=== PATIENT | male | born 1975 | race African-American/Black ===

== ENCOUNTER 2016-09-20 15:15 | Emergency (ER) | payer MEDICAID ==
[~2016-09-20] VITALS: Ht 185.4 cm; Wt 124.5 kg
[2016-09-20] MEDS ORDERED: SODIUM CHLORIDE FLUSH 10ML SYR IVF ONE (15:30)
[2016-09-20] MEDS ORDERED: ASPIRIN 81 MG TABLET CHEW PO ONE (15:30)
[2016-09-20 15:53] LABS: ASPARTATE AMINO TRANSFERASE 8 U/L (15-37); BLOOD UREA NITROGEN 15 mg/dL (7-18)
[2016-09-20 15:56] LABS: IS PT STATUS REG ER OR PRE ER? YES
[2016-09-20] MEDS ORDERED: ASPIRIN 81 MG TABLET CHEW ONE (15:56)
[2016-09-20 16:10] LABS: LARGE PLATELETS 1+
[2016-09-20 18:11] VITALS: BP 120/74
== END 2016-09-20 18:07 | disposition home or self-care (01) ==
LOC: ED 18:01
DX: R07.89 Other chest pain (principal); R06.00 Dyspnea, unspecified; N18.9 Chronic kidney disease, unspecified; I10 Essential (primary) hypertension; K21.9 Gastro-esophageal reflux disease without esophagitis
CPT/HCPCS: 36415; 71010; 80053; 81003; 84484; 85025; 93005; 99285

== ENCOUNTER 2016-09-22 17:00 | Emergency (ER) | payer MEDICAID ==
[~2016-09-22] VITALS: Ht 185.4 cm; Wt 126.4 kg
[2016-09-22 17:09] VITALS: BP 118/81
[2016-09-22 18:32] LABS: ASPARTATE AMINO TRANSFERASE 8 U/L (15-37); BLOOD UREA NITROGEN 12 mg/dL (7-18)
== END 2016-09-22 19:49 | disposition home or self-care (01) ==
LOC: ED 19:23
DX: R10.9 Unspecified abdominal pain (principal); H10.233 Serous conjunctivitis, except viral, bilateral; I12.9 Hypertensive chronic kidney disease with stage 1 through stage 4 chronic kidney disease, or unspecified chronic kidney disease; N18.9 Chronic kidney disease, unspecified; R68.2 Dry mouth, unspecified; K21.9 Gastro-esophageal reflux disease without esophagitis; Z90.49 Acquired absence of other specified parts of digestive tract; Z90.89 Acquired absence of other organs
CPT/HCPCS: 36415; 80053; 85025; 99284

== ENCOUNTER 2016-10-12 15:10 | Emergency (ER) | payer MEDICAID ==
[~2016-10-12] VITALS: Ht 185.4 cm; Wt 126.0 kg
[2016-10-12] MEDS ORDERED: ACETAMINOPHEN 325 MG TABLET ONE (15:50)
[2016-10-12] MEDS ORDERED: ACETAMINOPHEN 325 MG TABLET PO ONE (16:00)
[2016-10-12 16:31] LABS: BLOOD UREA NITROGEN 9 mg/dL (7-18)
[2016-10-12 16:53] VITALS: BP 128/89
[2016-10-12] MEDS ORDERED: IBUPROFEN 200 MG TABLET ONE (16:57)
[2016-10-12] MEDS ORDERED: IBUPROFEN 200 MG TABLET PO ONE (17:00)
[2016-10-12] MEDS ORDERED: DEXTROMETHORPHAN 30 MG/5 ML ORAL SOL PO PRN (17:00)
== END 2016-10-12 17:14 | disposition home or self-care (01) ==
LOC: ED 16:42
DX: R50.9 Fever, unspecified (principal); J02.8 Acute pharyngitis due to other specified organisms; I10 Essential (primary) hypertension; K21.9 Gastro-esophageal reflux disease without esophagitis
CPT/HCPCS: 36415; 71020; 80048; 82040; 99285

== ENCOUNTER 2016-12-02 05:07 | Emergency (ER) | payer MEDICAID ==
[~2016-12-02] VITALS: Ht 185.4 cm; Wt 126.8 kg
[2016-12-02 05:08] VITALS: BP 139/88
[2016-12-02] MEDS ORDERED: ONDANSETRON 2MG/ML, 2ML ONE (06:19)
[2016-12-02] MEDS ORDERED: MAALOX/HYOSCYAMINE/LIDOCAINE 45 ML BOTTLE ONE (06:19)
[2016-12-02] MEDS ORDERED: FAMOTIDINE 20 MG/2 ML ONE (06:20)
[2016-12-02] MEDS ORDERED: FAMOTIDINE 20 MG/2 ML IVP ONE (06:30)
[2016-12-02] MEDS ORDERED: MAALOX/HYOSCYAMINE/LIDOCAINE 45 ML BOTTLE PO ONE (06:30)
[2016-12-02] MEDS ORDERED: SODIUM CHLORIDE 0.9% 1,000ML IVBOLUS ONE (06:30)
[2016-12-02] MEDS ORDERED: ONDANSETRON 2MG/ML, 2ML IVPush ONE (06:30)
[2016-12-02 06:45] LABS: ASPARTATE AMINO TRANSFERASE 13 U/L (15-37); BLOOD UREA NITROGEN 8 mg/dL (7-18)
== END 2016-12-02 08:30 | disposition home or self-care (01) ==
LOC: ED 07:47
DX: G89.29 Other chronic pain (principal); R10.84 Generalized abdominal pain; I10 Essential (primary) hypertension; K21.9 Gastro-esophageal reflux disease without esophagitis
CPT/HCPCS: 36415; 80053; 81003; 85025; 96361; 96374; 99285; J2405; J7030

== ENCOUNTER 2017-01-20 05:36 | Emergency (ER) | payer MEDICAID ==
[~2017-01-20] VITALS: Ht 185.4 cm; Wt 123.5 kg
[2017-01-20 06:32] LABS: HEMATOCRIT 49.7 % (39.2-51.8); WHITE BLOOD COUNT 6.7 x10^3/uL (3.4-10)
[2017-01-20 06:39] LABS: BLOOD UREA NITROGEN 9 mg/dL (7-18)
[2017-01-20] MEDS ORDERED: AMPH30TA2 PO (06:59)
[2017-01-20 07:48] VITALS: BP 124/82
== END 2017-01-20 08:27 | disposition home or self-care (01) ==
LOC: ED 06:42
DX: I12.9 Hypertensive chronic kidney disease with stage 1 through stage 4 chronic kidney disease, or unspecified chronic kidney disease (principal); N18.2 Chronic kidney disease, stage 2 (mild); F41.1 Generalized anxiety disorder; K21.9 Gastro-esophageal reflux disease without esophagitis; Z90.49 Acquired absence of other specified parts of digestive tract
CPT/HCPCS: 36415; 80048; 81003; 82040; 85025; 99284

== ENCOUNTER 2017-01-23 09:13 | Emergency (ER) | payer MEDICAID ==
[~2017-01-23] VITALS: Ht 185.4 cm; Wt 124.0 kg
[~2017-01-23 09:13] MED LIST: AMPH30TA2 PO
[2017-01-23 09:22] VITALS: BP 138/82
[2017-01-23] MEDS ORDERED: BUPR75TA6 PO (09:47)
[2017-01-23 10:16] LABS: HEMATOCRIT 49.4 % (39.2-51.8); HEMOGLOBIN 16.2 g/dL (13.7-18.0); WHITE BLOOD COUNT 7.5 x10^3/uL (3.4-10)
[2017-01-23 10:27] LABS: BLOOD UREA NITROGEN 12 mg/dL (7-18)
[2017-01-23 10:35] LABS: DIFF TOTAL CELLS COUNTED 100 CELL DIFF
[2017-01-23 10:37] LABS: LARGE PLATELETS 1+; VERIFY COUNTS? YES
== END 2017-01-23 12:25 | disposition home or self-care (01) ==
LOC: ED 11:45
DX: N34.2 Other urethritis (principal); I10 Essential (primary) hypertension; K21.9 Gastro-esophageal reflux disease without esophagitis; Z90.49 Acquired absence of other specified parts of digestive tract; Z87.891 Personal history of nicotine dependence; Z88.0 Allergy status to penicillin
CPT/HCPCS: 36415; 80048; 81003; 82040; 85025; 99284

== ENCOUNTER 2017-10-11 00:53 | Emergency (ER) | payer MEDICAID ==
[~2017-10-11] VITALS: Ht 185.4 cm; Wt 149.4 kg
[~2017-10-11 00:53] MED LIST changes: +BUPR75TA6 PO
[2017-10-11 00:55] VITALS: BP 155/104
[2017-10-11] MEDS ORDERED: IBUPROFEN 200 MG TABLET ONE (01:13)
[2017-10-11] MEDS ORDERED: IBUPROFEN 200 MG TABLET PO ONE (01:30)
== END 2017-10-11 01:22 | disposition home or self-care (01) ==
LOC: ED 01:15
DX: M79.661 Pain in right lower leg (principal); M79.662 Pain in left lower leg; I10 Essential (primary) hypertension; K21.9 Gastro-esophageal reflux disease without esophagitis; Z90.49 Acquired absence of other specified parts of digestive tract
CPT/HCPCS: 99282

== ENCOUNTER 2018-02-27 18:51 | Emergency (ER) | payer MEDICAID ==
[~2018-02-27] VITALS: Ht 185.4 cm; Wt 178.0 kg
[2018-02-27 19:02] VITALS: BP 121/80
== END 2018-02-27 19:42 | disposition home or self-care (01) ==
LOC: ED 19:10
DX: B34.9 Viral infection, unspecified (principal); I10 Essential (primary) hypertension; K21.9 Gastro-esophageal reflux disease without esophagitis; Z90.49 Acquired absence of other specified parts of digestive tract; Z87.891 Personal history of nicotine dependence
CPT/HCPCS: 99283

== ENCOUNTER 2018-03-15 12:21 | Emergency (ER) | payer MEDICAID ==
[~2018-03-15] VITALS: Ht 185.4 cm; Wt 138.7 kg
[2018-03-15 12:31] VITALS: BP 116/86
[2018-03-15] MEDS ORDERED: ACETAMINOPHEN 325 MG TABLET PO ONE (13:00)
[2018-03-15] MEDS ORDERED: IBUPROFEN 200 MG TABLET PO ONE (13:00)
[2018-03-15] MEDS ORDERED: ACETAMINOPHEN 325 MG TABLET ONE (13:07)
[2018-03-15] MEDS ORDERED: IBUPROFEN 200 MG TABLET ONE (13:07)
== END 2018-03-15 16:15 | disposition home or self-care (01) ==
LOC: ED 13:50
DX: S16.1XXA Strain of muscle, fascia and tendon at neck level, initial encounter (principal); S39.012A Strain of muscle, fascia and tendon of lower back, initial encounter; S20.211A Contusion of right front wall of thorax, initial encounter; J02.9 Acute pharyngitis, unspecified; I10 Essential (primary) hypertension; K21.9 Gastro-esophageal reflux disease without esophagitis; Z90.49 Acquired absence of other specified parts of digestive tract; Z88.0 Allergy status to penicillin; V49.09XA Driver injured in collision with other motor vehicles in nontraffic accident, initial encounter; Y93.89 Activity, other specified; Y99.8 Other external cause status; Y92.410 Unspecified street and highway as the place of occurrence of the external cause
CPT/HCPCS: 72020; 72110; 72125; 87081; 87880; 99285

== ENCOUNTER 2018-03-22 21:28 | Emergency (ER) | payer MEDICAID ==
[~2018-03-22] VITALS: Ht 185.4 cm; Wt 143.0 kg
[2018-03-22] MEDS ORDERED: ONDANSETRON ODT 4 MG ONE (22:26)
[2018-03-22] MEDS ORDERED: ONDANSETRON ODT 4 MG PO ONE (22:30)
[2018-03-22 22:36] VITALS: BP 130/87
[2018-03-22 22:52] LABS: MEAN CORPUSCULAR HEMOGLOBIN 28.7 pg (27.5-34.5); MEAN CORPUSCULAR HGB CONC 33.4 g/dL (33.2-36.2); MEAN CORPUSCULAR VOLUME 85.8 fL (81-97); MEAN PLATELET VOLUME 10.8 fL (7.4-10.4); PLATELET COUNT 167 x10^3/uL (130-400); RED BLOOD COUNT 5.35 x10^6/uL (4.38-5.82); RED CELL DISTRIBUTION WIDTH 15.1 % (9.4-14.8)
[2018-03-22 23:01] LABS: ALBUMIN 3.6 g/dL (3.4-5.0); ANION GAP 8 mmol/L (5-15); CALCIUM 8.8 mg/dL (8.5-10.1); CHLORIDE 105 mmol/L (98-107); CREATININE 1.11 mg/dL (0.7-1.3)
[2018-03-22 23:10] LABS: BASOPHILS # (AUTO) 0.05 x10^3/uL (0-0.1); BASOPHILS % (AUTO) 1 % (0-1); EOSINOPHILS # (AUTO) 0.21 x10^3/uL (0-0.4); EOSINOPHILS % (AUTO) 3 % (1-7); LYMPHOCYTES # (AUTO) 2.54 x10^3/uL (1-3.4); LYMPHOCYTES % (AUTO) 32 % (22-44); MD SCAN; MONOCYTES # (AUTO) 0.89 x10^3/uL (0.2-0.8); MONOCYTES % (AUTO) 11 % (2-9); NEUTROPHILS % (AUTO) 53 % (42-75)
== END 2018-03-22 23:33 | disposition home or self-care (01) ==
LOC: ED 23:21
DX: R19.7 Diarrhea, unspecified (principal); R10.84 Generalized abdominal pain; R21 Rash and other nonspecific skin eruption; I10 Essential (primary) hypertension; K21.9 Gastro-esophageal reflux disease without esophagitis
CPT/HCPCS: 36415; 80048; 82040; 85025; 93005; 99285; Q0162; Q0177

== ENCOUNTER 2018-10-13 20:18 | Emergency (ER) | payer MEDICAID ==
[~2018-10-13] VITALS: Ht 185.4 cm; Wt 148.0 kg
--- NOTE | 2018-10-13 20:36 | NUR ---
STARTED GETTING DIZZY AT WORK ABOUT 30 MIN AGO. THINKS HE HAS DM BECAUSE HIS URINE HAS BUBBLES IN IT. PT ALSO C/O RIGHT SIDED FLANK PAIN. MONITORS APPLIED SIDERAILS UP X2, CALL LIGHT WITHIN REACH
--- NOTE | 2018-10-13 21:04 | NUR ---
URINE SAMPLE TAKEN TO LAB
--- NOTE | 2018-10-13 21:09 | NUR ---
PT RESTING ON [facility] in [place] ON CELL PHONE, MONITORS IN PLACE, CALL LIGHT WITHIN REACH. DENIES NEEDS AT THIS TIME, AWAITING ERP FOR EVAL AND ORDERS
[2018-10-13 21:40] LABS: MICROSCOPIC NOT IND
--- NOTE | 2018-10-13 21:44 | NUR ---
laboratory equipment installer at bedside for lab draw, pt refused lab draw and requesting another laboratory equipment installer for lab draw.
[2018-10-13 21:45] LABS: CULTURE INDICATED? NO
[2018-10-13 21:55] LABS: BASOPHILS # (AUTO) 0.03 x10^3/uL (0-0.1); BASOPHILS % (AUTO) 1 % (0-1); EOSINOPHILS # (AUTO) 0.12 x10^3/uL (0-0.4); EOSINOPHILS % (AUTO) 2 % (1-7); LYMPHOCYTES # (AUTO) 2.51 x10^3/uL (1-3.4); LYMPHOCYTES % (AUTO) 44 % (22-44); MD NO; MEAN CORPUSCULAR HEMOGLOBIN 28.3 pg (27.5-34.5); MEAN CORPUSCULAR HGB CONC 32.2 g/dL (33.2-36.2); MEAN CORPUSCULAR VOLUME 87.8 fL (81-97); MEAN PLATELET VOLUME 9.9 fL (7.4-10.4); MONOCYTES # (AUTO) 0.62 x10^3/uL (0.2-0.8); MONOCYTES % (AUTO) 11 % (2-9); NEUTROPHILS # (AUTO) 2.41 x10^3/uL (1.8-6.8); NEUTROPHILS % (AUTO) 42 % (42-75); PLATELET COUNT 179 x10^3/uL (130-400); RED BLOOD COUNT 5.44 x10^6/uL (4.38-5.82); RED CELL DISTRIBUTION WIDTH 15.3 % (9.4-14.8)
[2018-10-13 22:01] VITALS: BP 107/65
--- NOTE | 2018-10-13 22:01 | NUR ---
pt sitting up on gurney on cell phone, denies needs, call light within reach. awaiting lab results
[2018-10-13 22:07] LABS: ALBUMIN 3.5 g/dL (3.4-5.0); ANION GAP 5 mmol/L (5-15); CALCIUM 8.8 mg/dL (8.5-10.1); CHLORIDE 109 mmol/L (98-107); CREATININE 1.33 mg/dL (0.7-1.3)
== END 2018-10-13 22:38 | disposition home or self-care (01) ==
LOC: ED 20:57
DX: M25.521 Pain in right elbow (principal); M25.522 Pain in left elbow; R42 Dizziness and giddiness; E86.0 Dehydration; I12.9 Hypertensive chronic kidney disease with stage 1 through stage 4 chronic kidney disease, or unspecified chronic kidney disease; N18.2 Chronic kidney disease, stage 2 (mild); K21.9 Gastro-esophageal reflux disease without esophagitis; N28.9 Disorder of kidney and ureter, unspecified; Z87.891 Personal history of nicotine dependence; Z88.0 Allergy status to penicillin
CPT/HCPCS: 36415; 71045; 80048; 81003; 82040; 85025; 93005; 99284

== ENCOUNTER 2019-06-08 10:22 | Emergency (ER) | payer MEDICAID ==
[~2019-06-08] VITALS: Ht 185.4 cm; Wt 160.9 kg
[2019-06-08 10:28] VITALS: BP 148/96
--- NOTE | 2019-06-08 10:40 | NUR ---
PT REFUSING TO ANSWER ANY SOCIAL OF PHYSICAL ASSESSMENT QUESTIONS. HE STATES IT IS IN MY FILE. PT BECOMING INCREASINGLY MORE AGITATED WITH QUESTIONS. HE STATES I WILL JUST TALK TO THE DOCTOR I DON'T NEED TO TALK TO YOU.
--- NOTE | 2019-06-08 10:50 | NUR ---
SOCIAL HX OBTAINED THROUGH RECALL FUNCTION PT REFUSING TO ANSWER ANY QUESTIONS FOR THIS RN. MADE AWARE OF THIS INTERACTION. TO ASSESS PT.
--- NOTE | 2019-06-08 11:08 | NUR ---
UA ORDERED BY . UA CUP GIVEN TO PT WITH INSTRUCTIONS ON USE.
--- NOTE | 2019-06-08 11:11 | NUR ---
PT UP TO RESTROOM. AMBULATES WITH A STEADY GAIT.
--- NOTE | 2019-06-08 11:13 | NUR ---
LAB TO ROOM. PT DECLINING LAB DRAW AT THIS TIME. MADE AWARE.
[2019-06-08 11:29] LABS: MICROSCOPIC NOT IND
--- NOTE | 2019-06-08 11:52 | NUR ---
REPORT TO HIMA DARLING
--- NOTE | 2019-06-08 11:57 | NUR ---
ALL RESULTS ARE BACK AT THIS TIME. CHART UP FOR RECHECK.
--- NOTE | 2019-06-08 12:00 | NUR ---
PT REFUSED VS.
== END 2019-06-08 13:05 | disposition home or self-care (01) ==
LOC: ED 11:08
DX: G89.29 Other chronic pain (principal); R10.9 Unspecified abdominal pain; E11.22 Type 2 diabetes mellitus with diabetic chronic kidney disease; I12.9 Hypertensive chronic kidney disease with stage 1 through stage 4 chronic kidney disease, or unspecified chronic kidney disease; N18.2 Chronic kidney disease, stage 2 (mild); K21.9 Gastro-esophageal reflux disease without esophagitis; E11.40 Type 2 diabetes mellitus with diabetic neuropathy, unspecified; E11.21 Type 2 diabetes mellitus with diabetic nephropathy; Z90.49 Acquired absence of other specified parts of digestive tract; Z88.0 Allergy status to penicillin
CPT/HCPCS: 81003; 99283